=== PATIENT | male | born 1975 | race American Indian/Alaskan Native ===

== ENCOUNTER 2022-03-26 12:42 | Emergency (ER) | payer SELFPAY ==
[2022-03-26 13:27] VITALS: BP 114/78
[2022-03-26] MEDS ORDERED: SODIUM CHLORIDE 0.9% 1000 ML 1,000 ML IV ONE (14:14)
== END 2022-03-27 06:54 | disposition left against medical advice (07) ==
LOC: ED 12:42
DX: R73.9 Hyperglycemia, unspecified (principal); Z53.21 Procedure and treatment not carried out due to patient leaving prior to being seen by health care provider
CPT/HCPCS: 82962